=== PATIENT | male | born 1960 | race Caucasian/White ===

== ENCOUNTER 2017-04-28 13:03 | Emergency (ER) | payer OTHER ==
[~2017-04-28] VITALS: Ht 180.3 cm; Wt 132.0 kg
[2017-04-28 13:22] VITALS: BP 138/63
[2017-04-28] MEDS ORDERED: FURO-69 PO (13:36)
--- NOTE | 2017-04-28 13:36 | PHYS DOC ---
Past Medical History Past Medical History: GERD, Hypertension Past Surgical History: No Surgical History Alcohol Use: None Drug Use: None Adult General Chief Complaint Chief Complaint: LOWER EXTREMITY SWELLING HPI HPI 56-year-old male presenting to the emergency department with bilateral lower extremity swelling. This started approximately 2 or 3 days ago. He denies any redness or fevers. He denies chest pain or shortness of breath. He denies dyspnea on exertion. He has a history of hypertension that is well controlled on antihypertensive medications. Duration constant. Alleviated by elevating legs. Review of systems was negative for chest pain shortness of breath abdominal pain nausea vomiting fevers or chills. All other review of systems is negative unless otherwise noted in history of present illness. ED course: 66-year-old gentleman presenting to the emergency department today with bilateral leg swelling. Vital signs unremarkable. Pertinent physical exam findings showed proximally 2+ edema bilaterally in his ankles. Lungs are clear to auscultation bilaterally. Satting well on room air. Chemistry panel was obtained which showed normal kidney function. Patient does not have any evidence of pulm edema. I recommended the patient schedule an echocardiogram and sleep study and follow-up with his doctor in 3 days. Until that time I ordered the patient furosemide 20 mg daily for edema. The patient was then discharged home in stable condition to follow up with their primary care physician over the next 2-3 days. They were to return if their symptoms worsened or if they were concerned for any reason. [id number] discharge instructions and return precautions were given. Patient's questions were answered to their satisfaction. Patient is comfortable plan. Review of Systems Review of Systems SEE ABOVE. Physical Exam Physical Exam SEE ABOVE Constitutional: Well developed, well nourished, no acute distress, non-toxic appearance. [] HENT: Normocephalic, atraumatic, bilateral external ears normal, oropharynx moist, no oral exudates, nose normal. [] Eyes: PERRLA, EOMI, conjunctiva normal, no discharge. [] Neck: Normal range of motion, no tenderness, supple, no stridor. [] Cardiovascular:Heart rate regular rhythm, no murmur [] Lungs & Thorax: Bilateral breath sounds clear to auscultation [] Abdomen: Bowel sounds normal, soft, no tenderness, no masses, no pulsatile masses. [] Skin: Warm, dry, no erythema, no rash. [] Back: No tenderness, no CVA tenderness. [] Extremities: No tenderness, no cyanosis, no clubbing, ROM intact, 2+ edema. [] Neurologic: Alert and oriented X 3, normal motor function, normal sensory function, no focal deficits noted. [] Psychologic: Affect normal, judgement normal, mood normal. [] Current Patient Data Vital Signs Vital Signs Date Time Temp Pulse Resp B/P (MAP) Pulse Ox O2 Delivery O2 Flow Rate FiO2 04/28/17 13:22 99.1 96 20 138/63 (88) 97 Room Air 99.1 Lab Values Laboratory Tests Test 04/28/17 13:52 POC Hemoglobin 10.9 g/dL (14-18) L POC Hematocrit 32 % (37-52) L POC Sodium 134 mmol/L (135-145) L POC Potassium 3.5 mmol/L (3.5-5.0) POC Chloride 101 mmol/L (98-110) POC Total CO2 22 mmol/L (23-32) L Anion Gap 15 mmol/L (6-14) H POC Blood Urea Nitrogen 10 mg/dL (8-26) POC Creatinine 0.6 mg/dL (0.5-1.4) Glucose Level 104 mg/dL (70-99) H POC Ionized Calcium (Robinson) 1.07 mmol/L (1.13-1.32) L Laboratory Tests 04/28/17 13:52 EKG EKG [] Radiology/Procedures Radiology/Procedures [] Course & Med Decision Making Course & Med Decision Making Pertinent Labs and Imaging studies reviewed. (See chart for details) [] Dragon Disclaimer Dragon Disclaimer This electronic medical record was generated, in whole or in part, using a voice recognition dictation system. Departure Departure Impression: Primary Impression: Pedal edema Disposition: HOME, SELF-CARE Condition: STABLE Referrals: MIGUELITO MINER MD (PCP) Patient Instructions: Edema Additional Instructions: Thank you for allowing us to participate in your care today. Followup with your primary care physician in 3 days if your symptoms do not improve. Call your Primary Doctor tomorrow and inform them of your visit today. If you do not have a primary care provider you can ask for a list of our primary care providers. Return to the emergency department you have any new or concerning findings. This should be evaluated by the primary care physician and any necessary consulting services for continued management within a few days after discharge. Return to emergency room if you have any new or concerning symptoms including but not limited to fever, chills, nausea, vomiting, intractable pain, any new rashes, chest pain, shortness of air, uncontrolled bleeding, difficulty breathing, and/or vision loss. Scripts Furosemide (LASIX) 20 Mg Tablet 1 TAB PO DAILY, #7 TAB 0 Refills Prov: GRISELDA LEO MD 04/28/17 GRISELDA LEO MD Apr 28, 2017 13:36
[2017-04-28 13:58] LABS: POTASSIUM ISTAT 3.5 mmol/L (3.5-5.0)
== END 2017-04-28 14:11 | disposition home or self-care (01) ==
LOC: ER 13:03
DX: R60.0 Localized edema (principal); K21.9 Gastro-esophageal reflux disease without esophagitis; I10 Essential (primary) hypertension; Z79.899 Other long term (current) drug therapy
CPT/HCPCS: 36415; 80047; 99283